=== PATIENT | female | born 1985 | race Caucasian/White ===

== ENCOUNTER 2020-10-24 18:23 | Emergency (ER) | payer OTHER ==
[~2020-10-24] VITALS: Ht 170.2 cm; Wt 74.8 kg
[~2020-10-24 18:23] MED LIST: AMOX500 PO; Bactrim Ds Tab1 EACH PO; HYDACE5 PO; IBUP800 PO; ILOTYCIN1 GM; LEVFLO500 PO; MULVITMINE; NYQUIL; Norco 5-325 Ta1 EACH PO; ONDA4 PO; PHENA200 PO; PRENZ PO; PRODEXEL PO; RXANTBENOT AU; RXOXYACE PO; ZYCAM
[2020-10-24] MEDS ORDERED: CYCL10 PO (19:53)
== END 2020-10-24 20:05 | disposition home or self-care (01) ==
LOC: ER 18:23
DX: S16.1XXA Strain of muscle, fascia and tendon at neck level, initial encounter (principal); F17.200 Nicotine dependence, unspecified, uncomplicated; V43.53XA Car driver injured in collision with pick-up truck in traffic accident, initial encounter; Y92.410 Unspecified street and highway as the place of occurrence of the external cause
CPT/HCPCS: 99282; A9270

== ENCOUNTER 2020-10-29 16:45 | Emergency (ER) | payer OTHER ==
[~2020-10-29] VITALS: Ht 170.2 cm; Wt 74.8 kg
[~2020-10-29 16:45] MED LIST changes: +CYCL10 PO
[2020-10-29] MEDS ORDERED: Robaxin750 MG PO (17:49)
== END 2020-10-29 18:06 | disposition home or self-care (01) ==
LOC: ER 16:45
DX: R51.9 Headache, unspecified (principal); M54.6 Pain in thoracic spine; Z79.899 Other long term (current) drug therapy; Z87.891 Personal history of nicotine dependence
CPT/HCPCS: 99283